=== PATIENT | female | born 1935 | race Caucasian/White ===

== ENCOUNTER 2016-10-27 21:20 | Emergency (ER) | payer MEDICARE ==
[2016-10-27 22:05] LABS: HEMOGLOBIN 13.7 gm/dl (12.3-15.3); RED BLOOD COUNT 4.37 M/UL (4.00-5.10); WHITE BLOOD COUNT 7.1 K/UL (4.5-11.0)
[2016-10-27 22:53] LABS: BUN/CREATININE RATIO 39 (0-10)
[2016-10-28] MEDS ORDERED: NORVASC 5 MG TAB5 MG PO (11:35)
[2016-10-28] MEDS ORDERED: PROTONIX40 MG PO (11:36)
[2016-10-28] MEDS ORDERED: DEPAKOTE500 MG PO (11:36)
[2016-10-28] MEDS ORDERED: SEROQUEL25 MG PO (11:37)
== END 2016-10-28 03:29 | disposition home or self-care (01) ==
LOC: ER1 21:20
PROVIDERS: Family Medicine
DX: K22.4 Dyskinesia of esophagus (principal); R11.10 Vomiting, unspecified; T50.905A Adverse effect of unspecified drugs, medicaments and biological substances, initial encounter; F41.9 Anxiety disorder, unspecified; I10 Essential (primary) hypertension; Z79.899 Other long term (current) drug therapy
CPT/HCPCS: 36415; 71010; 80053; 81001; 82550; 82553; 83690; 83874; 84484; 85025; 93005; 96374; 96375; 99284; C9113; J2405; J7030

== ENCOUNTER 2016-10-28 10:01 | Observation (INO) | payer MEDICARE, OTHER ==
[~2016-10-28] VITALS: Ht 160 cm; Wt 64.0 kg
[2016-10-28] MEDS ORDERED: NORVASC 5 MG TAB5 MG PO (11:35)
[2016-10-28] MEDS ORDERED: PROTONIX40 MG PO (11:36)
[2016-10-28] MEDS ORDERED: DEPAKOTE500 MG PO (11:36)
[2016-10-28] MEDS ORDERED: SEROQUEL25 MG PO (11:37)
[2016-10-29 06:26] LABS: HEMOGLOBIN 12.1 gm/dl (12.3-15.3)
[2016-10-29 06:30] LABS: RED BLOOD COUNT 3.84 M/UL (4.00-5.10); WHITE BLOOD COUNT 11.5 K/UL (4.5-11.0)
[2016-10-29 06:46] LABS: BUN/CREATININE RATIO 30 (0-10)
== END 2016-10-29 17:00 | disposition home or self-care (01) ==
LOC: M/S 10:32
PROVIDERS: Internal Medicine Gastroenterology; ADMIT Family Medicine
PROC: 0DC58ZZ Extirpation of Matter from Esophagus, Via Natural or Artificial Opening Endoscopic (ICD-10-PCS; principal; 2016-10-29 08:32)
DX: T18.128A Food in esophagus causing other injury, initial encounter (principal); K44.9 Diaphragmatic hernia without obstruction or gangrene; K22.2 Esophageal obstruction; K22.8 Other specified diseases of esophagus; K80.20 Calculus of gallbladder without cholecystitis without obstruction; F41.9 Anxiety disorder, unspecified; F03.90 Unspecified dementia, unspecified severity, without behavioral disturbance, psychotic disturbance, mood disturbance, and anxiety; R41.82 Altered mental status, unspecified; R31.9 Hematuria, unspecified; I10 Essential (primary) hypertension; R13.10 Dysphagia, unspecified; Z79.899 Other long term (current) drug therapy
CPT/HCPCS: 36415; 71010; 71260; 74230; 76705; 80053; 81001; 82550; 82553; 83690; 83874; 84484; 85025; 85027; 92611-GN; 93005; 96374; 96375; 96376; 99284; C9113; G0378; G0379; J2250; J2405; J3010; J7030; J7040; J7050; Q9962

== ENCOUNTER → 2016-11-08 | Day surgery (SDC) | payer MEDICARE, SELFPAY ==
[~2016-11-08] MED LIST: DEPAKOTE500 MG PO; NORVASC 5 MG TAB5 MG PO; PROTONIX40 MG PO; SEROQUEL25 MG PO
== END | disposition home or self-care (01) ==
LOC: OR 07:30
PROVIDERS: Internal Medicine Gastroenterology
PROC: 0D738ZZ Dilation of Lower Esophagus, Via Natural or Artificial Opening Endoscopic (ICD-10-PCS; 2016-11-08)
PROC: 0D748ZZ Dilation of Esophagogastric Junction, Via Natural or Artificial Opening Endoscopic (ICD-10-PCS; principal; 2016-11-08 11:00)
DX: K22.2 Esophageal obstruction (principal); K44.9 Diaphragmatic hernia without obstruction or gangrene; I10 Essential (primary) hypertension; Z83.3 Family history of diabetes mellitus; Z79.899 Other long term (current) drug therapy
CPT/HCPCS: J2250; J3010; J7030

== ENCOUNTER → 2017-02-06 | Outpatient (CLI) | payer MEDICARE, SELFPAY | LOC: KOH-I 16:00 | DX: M25.561 Pain in right knee (principal); M25.551 Pain in right hip | CPT/HCPCS: 73502; 73562 ==

== ENCOUNTER 2020-10-19 15:57 | Emergency (ER) | payer MEDICARE, OTHER ==
[~2020-10-19 15:57] MED LIST changes: +ASPIRIN81 MG PO; +CLARITIN10 M2 PO; +DELSYM30 MG/5 ML PO; +FLAGYL500 MG PO; +FLONASE 0.05% N16 GM; +KEFLEX500 MG PO; +LEVOTHYROXINE75 MCG PO; +NAPROXEN500 MG PO; +PYRIDIUM200 MG PO; +SIMVASTATIN20 MG PO; +TIROSINT50 MCG PO
[2020-10-19 19:47] LABS: HEMOGLOBIN 13.2 gm/dl (12.3-15.3); RED BLOOD COUNT 4.04 M/UL (4.00-5.10); WHITE BLOOD COUNT 10.5 K/UL (4.5-11.0)
[2020-10-19 20:16] LABS: BUN/CREATININE RATIO 41 (0-10)
[2020-10-19] MEDS ORDERED: OMNICEF 300 MG300 MG PO (22:15)
== END 2020-10-19 23:16 | disposition home or self-care (01) ==
LOC: ER1 15:57
PROVIDERS: Physician Assistant
DX: T19.2XXA Foreign body in vulva and vagina, initial encounter (principal)
CPT/HCPCS: 36415; 70490; 80053; 81001; 83605; 85025; 87040; 87086; 99283; Q9967

== ENCOUNTER 2021-04-22 19:55 | Emergency (ER) | payer MEDICARE, OTHER ==
[~2021-04-22 19:55] MED LIST changes: +OMNICEF 300 MG300 MG PO
[2021-04-22 22:01] LABS: HEMOGLOBIN 14.4 gm/dl (12.3-15.3); RED BLOOD COUNT 4.34 M/UL (4.00-5.10); WHITE BLOOD COUNT 9.1 K/UL (4.5-11.0)
[2021-04-22 22:26] LABS: BUN/CREATININE RATIO 30 (0-10)
[2021-04-23] MEDS ORDERED: ZOFRAN ODT 4 MG4 MG SL (00:47)
== END 2021-04-23 01:15 | disposition home or self-care (01) ==
LOC: ER1 19:55
PROVIDERS: Emergency Medicine
DX: T18.128A Food in esophagus causing other injury, initial encounter (principal); Z20.822 Contact with and (suspected) exposure to COVID-19; I10 Essential (primary) hypertension
CPT/HCPCS: 71045; 80053; 83690; 85025; 93005; 96374; 99284; J1100; J2405; J2704; J2765; J7040; J7120; U0002

== ENCOUNTER → 2021-06-10 | Outpatient (CLI) | payer MEDICARE, OTHER ==
[~2021-06-10] MED LIST changes: +ZOFRAN ODT 4 MG4 MG SL
== END ==
LOC: RAD 08:08
DX: R13.19 Other dysphagia (principal); K22.4 Dyskinesia of esophagus; K44.9 Diaphragmatic hernia without obstruction or gangrene
CPT/HCPCS: 74230; 92611-GN